=== PATIENT | male | born 1970 | race Caucasian/White ===

== ENCOUNTER 2023-11-04 08:23 | Outpatient (CLI) | payer OTHER, SELFPAY ==
--- OUTSIDE RECORDS SUMMARY | 2023-11-05 12:55 | XMS_ITS | Continuity of Care Document ---
Author Name [facility] Organization [facility] Care Team Providers Care Telephone Operator Name Role Phone [facility] Unavailable Unavailable Problems Combined list of problems from Department of Defense and Veterans [facility] facilities. It does not include entries that were removed or entered in error. Problem Status Onset Date Problem Type Date of Resolution Comments Source visit for: issue medical certificate Inactive Condition [facility] dislocation of finger closed interphalangeal joint Inactive Condition DoD closed fracture fingers ip joint with dislocation Inactive Condition DoD dislocation fingers closed right ring finger PIP Inactive Condition DoD Immunizations Combined list of available immunizations from the Department of Defense and Veterans [facility] facilities. Immunization Series Date Given Administered By Site Reaction Lot Number CVX Code Drug Television Maintenance Worker Status Comments Source COVID-19 (MODERNA), MRNA, LNP-S, PF, 100 MCG/0.5 ML DOSE 2 2020 207 complet ed MOD; [id number]; 1 [facility] COVID-19 (MODERNA), MRNA, LNP-S, PF, 100 MCG/0.5 ML DOSE 1 2020 207 complet ed MOD; [id number]; 1 [facility] Encounters Combined list of: 1) Encounters from Department of [facility] facilities going back up to thelast 18 months. 2) Encounters from the Department of [facility] facilities going back up to 280 months. Location Location Details Encounter Type Encounter Number Reason For Visit Attending Provider ADM Date DC Date Status Disposition Source [facility] [id number] 04/24 Released with Work/Duty Limitations [facility] [id number] 04/25 Released w/o Limitations [facility] [id number] 04/25 Released with Work/Duty Limitations [facility] [id number] 05/02 Released w/o Limitations [facility] Social History Combined list of available smoking, tobacco, and other social history from Department of Defense and Veterans Affairs facilities. Social History Type Response Date Comment Sourc e This section is an empty social history section. DoD
--- OUTSIDE RECORDS SUMMARY | 2023-11-05 12:55 | XMS_ITS | Clinical Summary ---
Author Name Unknown Organization [facility] Address [place], [place] [address] Care Team Providers Care Public Defender Name Role Phone Pcp, No Primary Care Provider Unavailabl e Allergies No known active allergies Medications No known medications Active Problems No known active problems Family History Medical History Relation Name Comments Arthritis Father Rheumatoid Arth ritis Relation Name Status Comments Father Social History Tobacco Use Types Packs/Day Years Used Date Smoking Tobacco: Never Smokeless Tobacco: Never Tobacco Cessation:Counseling Given: Yes Alcohol Use Standard Drinks/Week Comments Yes 0 (1 standard drink = 0.6 oz pur e alcohol) < 1 drink monthly Sex and Gender Information Value Date Recorded Sex Assigned at Not on file Gender Identity Not on file Sexual Orientation Not on file Obstetrics History Last Filed Vital Signs Vital Sign Reading Time Taken Comments Blood Pressure 124/85 08/28/2014 8:52 AM FRUIT DRYER Pulse 83 08/28/2014 8:52 AM FRUIT DRYER Temperature 36.9 ??C (98.4 ??F) 08/28/2014 8:52 AM CS T Respiratory Rate - - Oxygen Saturation 97% 08/28/2014 8:52 AM FRUIT DRYER Inhaled Oxygen Concentration - - Weight 142.1 kg (313 lb 3.2 oz) 08/28/2014 8:52 AM FRUIT DRYER Height 188 cm (6' 2.02) 08/28/2014 8:52 AM FRUIT DRYER Body Mass Index 40.2 08/28/2014 8:52 AM FRUIT DRYER Plan of Treatment Health Maintenance Due Date Last Done Comments Tdap 1979 Depression screening for age 12+ 1980 HIV for age 15-65 1983 BMI (ht and wt on same day) for age 18+ 1986 Hepatitis C screening for ag e 18-79 1986 Tetanus booster 1988 Colonoscopy through age 75 2013 Lipids for age 45-75 04/06/2018 04/06/2013 Zoster (shingles) series for age 50+ (1 of 2) 2018 COVID-19 vaccine series (2022-24 season) 2023 Influenza for age 50-64 03/26/2024 Pneumococcal series for age 6-64 Aged Out No longer eligible based on patient's age to complete this topic Procedures Procedure Name Priority Date/Time Associated Diagnosis Comments LIPID PANEL W REFLEX MEASURED LDL Routine 04/06/2013 9:44 AM CDT Routine general medical examination at a health care facility from Last 3 Months or Most Recently Relevant to Health Maintenance Results * (ABNORMAL) LIPID PANEL W REFLEX MEASURED LDL (04/06/2013 9:44 AM CDT) CHOLESTEROL,TOTAL 199 100 - 199 mg/dL 04/06/2013 10:31 AM T [facility] TRIGLYCERIDES 86 <150 mg/dL 04/06/2013 10:31 AM T [facility] HDL CHOLESTEROL 46 >40 mg/dL 3 10:31 AM T [facility] NON-HDL CHOLESTEROL 153(H) <145 mg/dl 04/06/2013 10:31 AM [facility] CHOL/HDL RATIO 4.33 <4.50 04/06/2013 10:31 AM T [facility] LDL CHOLESTEROL 136(H) <=130 mg/dL 04/06/2013 10:31 AM T [facility] PATIENT STATUS FASTING 04/06/2013 10:31 AM [facility] Blood specimen (specimen) BLOOD SPECIMEN / Unknown Venipuncture / Unknown 04/06/2013 9:44 AM CDT 04/06/2013 9:44 AM CDT Tiburcio Vasques MD CHEMISTRY [facility] [address] [place] [address] from Last 3 Months or Most Recently Relevant to Health Maintenance Care Teams Public Defender Relationship Specialty Start Date End Date Pcp, No . PCP - General 08/24/13
== END 2023-11-04 08:24 | disposition home or self-care (01) ==
LOC: NFLDREF 11-05 12:54
PROVIDERS: Visit Provider Family Medicine
DX: Z13.1 Encounter for screening for diabetes mellitus (principal); Z13.220 Encounter for screening for lipoid disorders; Z12.5 Encounter for screening for malignant neoplasm of prostate
CPT/HCPCS: 80061; 82947; G0103

== ENCOUNTER 2023-11-16 09:22 | Outpatient (CLI) | payer OTHER, SELFPAY ==
--- OUTSIDE RECORDS SUMMARY | 2023-11-16 09:25 | XMS_ITS | Continuity of Care Document ---
Author Name [facility] Organization [facility] Care Team Providers Care Product Design Engineer Name Role Phone [facility] Unavailable Unavailable Problems Combined list of problems from Department of Defense and Veterans [facility] facilities. It does not include entries that were removed or entered in error. Problem Status Onset Date Problem Type Date of Resolution Comments Source visit for: issue medical certificate Inactive Condition [facility] dislocation of finger closed interphalangeal joint Inactive Condition DoD closed fracture fingers ip joint with dislocation Inactive Condition DoD dislocation fingers closed right ring finger PIP Inactive Condition DoD Immunizations Combined list of available immunizations from the Department of Defense and Veterans [facility] facilities. Immunization Series Date Given Administered By Site Reaction Lot Number CVX Code Drug Beveler Status Comments Source COVID-19 (MODERNA), MRNA, LNP-S, PF, 100 MCG/0.5 ML DOSE 2 2020 207 complet ed MOD; [id number]; 1 [facility] COVID-19 (MODERNA), MRNA, LNP-S, PF, 100 MCG/0.5 ML DOSE 1 2020 207 complet ed MOD; [id number]; 1 [facility] Encounters Combined list of: 1) Encounters from Department of [facility] facilities going back up to thelast 18 months. 2) Encounters from the Department of [facility] facilities going back up to 280 months. Location Location Details Encounter Type Encounter Number Reason For Visit Attending Provider ADM Date DC Date Status Disposition Source [facility] OUTPAT[facility] [id number] 04/24 Released with Work/Duty Limitations [facility] [id number] 04/25 Released w/o Limitations [facility] [id number] 04/25 Released with Work/Duty Limitations [facility] [id number] 05/02 Released w/o Limitations [facility] Social History Combined list of available smoking, tobacco, and other social history from Department of Defense and Veterans Affairs facilities. Social History Type Response Date Comment Sourc e This section is an empty social history section. DoD
--- OUTSIDE RECORDS SUMMARY | 2023-11-16 09:25 | XMS_ITS | Clinical Summary ---
Author Name Unknown Organization [facility] Address [place], [place] [address] Care Team Providers Care Wellness Spa Manager Name Role Phone Pcp, No Primary Care [...] Comments Blood Pressure 124/85 08/28/2014 8:52 AM MEDICAL CLERK Pulse 83 08/28/2014 8:52 AM MEDICAL CLERK Temperature 36.9 ??C (98.4 ??F) 08/28/2014 8:52 AM CS T Respiratory Rate - - Oxygen Saturation 97% 08/28/2014 8:52 AM MEDICAL CLERK Inhaled Oxygen Concentration - - Weight 142.1 kg (313 lb 3.2 oz) 08/28/2014 8:52 AM MEDICAL CLERK Height 188 cm (6' 2.02) 08/28/2014 8:52 AM MEDICAL CLERK Body Mass Index 40.2 08/28/2014 8:52 AM MEDICAL CLERK Plan of Treatment Health Maintenance Due Date [...] Vasques MD CHEMISTRY [facility] [address] [place] [address] from Last 3 Months or Most Recently Relevant to Health Maintenance Care Teams Wellness Spa Manager Relationship Specialty Start Date End Date Pcp, No . PCP - General 08/24/13
== END 2023-11-16 09:23 | disposition home or self-care (01) ==
LOC: OP CLINIC 09:23
PROVIDERS: PCP Family Medicine; Visit Provider Surgery
DX: Z53.9 Procedure and treatment not carried out, unspecified reason (principal)

== ENCOUNTER 2023-11-25 09:29 | Outpatient (CLI) | payer OTHER, SELFPAY ==
--- OUTSIDE RECORDS SUMMARY | 2023-11-25 09:34 | XMS_ITS | Continuity of Care Document ---
Author Name [facility] Organization [facility] Care Team Providers Care Heel Seat Fitter Name Role Phone [facility] Unavailable Unavailable Problems Combined list of problems from Department of Defense and Veterans [facility] facilities. It does not include entries that were removed or entered in error. Problem Status Onset Date Problem Type Date of Resolution Comments Source visit for: issue medical certificate Inactive Condition [facility] dislocation of finger closed interphalangeal joint Inactive Condition DoD closed fracture fingers ip joint with dislocation Inactive Condition DoD dislocation fingers closed right ring finger PIP Inactive Condition DoD Immunizations Combined list of available immunizations from the Department of Defense and Veterans [facility] facilities. Immunization Series Date Given Administered By Site Reaction Lot Number CVX Code Drug Mine Car Mechanic Status Comments Source COVID-19 (MODERNA), MRNA, LNP-S, PF, 100 MCG/0.5 ML DOSE 2 2020 207 complet ed MOD; [id number]; 1 [facility] COVID-19 (MODERNA), MRNA, LNP-S, PF, 100 MCG/0.5 ML DOSE 1 2020 207 complet ed MOD; [id number]; 1 [facility] Encounters Combined list of: 1) Encounters from Department of [facility] facilities going back up to thelast 18 months. 2) Encounters from the Department of [facility] facilities going back up to 280 months. Location Location Details Encounter Type Encounter Number Reason For Visit Attending Provider ADM Date DC Date Status Disposition Source [facility] OUTPATIENT [id number] 04/24 Released with Work/Duty Limitations [facility] [id number] 04/25 Released w/o Limitations [facility] [id number] 04/25 Released with Work/Duty Limitations [facility] [id number] 05/02 Released w/o Limitations [facility] Social History Combined list of available smoking, tobacco, and other social history from Department of Defense and Veterans Affairs facilities. Social History Type Response Date Comment Sourc e This section is an empty social history section. DoD
--- OUTSIDE RECORDS SUMMARY | 2023-11-25 09:34 | XMS_ITS | Clinical Summary ---
Author Name Unknown Organization [facility] Address [place], [place] [address] Care Team Providers Care Service Unit Operator Name Role Phone Pcp, No Primary Care [...] Comments Blood Pressure 124/85 08/28/2014 8:52 AM CYBER POLICY AND STRATEGY PLANNER Pulse 83 08/28/2014 8:52 AM CYBER POLICY AND STRATEGY PLANNER Temperature 36.9 ??C (98.4 ??F) 08/28/2014 8:52 AM CS T Respiratory Rate - - Oxygen Saturation 97% 08/28/2014 8:52 AM CYBER POLICY AND STRATEGY PLANNER Inhaled Oxygen Concentration - - Weight 142.1 kg (313 lb 3.2 oz) 08/28/2014 8:52 AM CYBER POLICY AND STRATEGY PLANNER Height 188 cm (6' 2.02) 08/28/2014 8:52 AM CYBER POLICY AND STRATEGY PLANNER Body Mass Index 40.2 08/28/2014 8:52 AM CYBER POLICY AND STRATEGY PLANNER Plan of Treatment Health Maintenance Due Date [...] - 199 mg/dL 04/06/2013 10:31 AM T [facility] TRIGLYCERIDES 86 <150 mg/dL 04/06/2013 10:31 AM T [facility] HDL CHOLESTEROL 46 >40 mg/dL 3 10:31 AM T [facility] NON-HDL CHOLESTEROL 153(H) <145 mg/dl 04/06/2013 10:31 AM T [facility] CHOL/HDL RATIO 4.33 <4.50 04/06/2013 10:31 AM T [facility] LDL CHOLESTEROL 136(H) <=130 mg/dL 04/06/2013 10:31 AM T [facility] PATIENT STATUS FASTING 04/06/2013 10:31 AM T [facility] Blood specimen (specimen) BLOOD SPECIMEN / Unknown Venipuncture / Unknown 04/06/2013 9:44 AM CDT 04/06/2013 9:44 AM CDT Tiburcio Vasques MD CHEMISTRY [facility] [address] [place] [address] from Last 3 Months or Most Recently Relevant to Health Maintenance Care Teams Service Unit Operator Relationship Specialty Start Date End Date Pcp, No . PCP - General 08/24/13
--- NOTE | 2023-11-25 11:23 | W.ANESCHARGE ---
Anesthesia Charges Start Date/Time Anesthesia Start Date: 11/25/23 Anesthesia Start Time: 10:50 Stop Date/Time Anesthesia Stop Date: 11/25/23 Anesthesia Stop Time: 11:21
--- NOTE | 2023-11-25 11:41 | W.ANESCHARGE ---
Anesthesia Charges Start Date/Time Anesthesia Start Date: 11/25/23 Anesthesia Start Time: 10:50 Stop Date/Time Anesthesia Stop Date: 11/25/23 Anesthesia Stop Time: 11:21
== END 2023-11-25 09:30 | disposition home or self-care (01) ==
LOC: OP CLINIC 09:29
PROVIDERS: PCP Family Medicine; Visit Provider Surgery
DX: Z12.11 Encounter for screening for malignant neoplasm of colon (principal); K63.5 Polyp of colon
CPT/HCPCS: 00811; 45385; 88305; J2704

== ENCOUNTER 2024-07-24 00:13 | Emergency (ER) | payer OTHER, SELFPAY ==
--- OUTSIDE RECORDS SUMMARY | 2024-07-24 00:15 | XMS_ITS | Continuity of Care Document ---
Author Name [facility] Organization [facility] Care Team Providers Care Euclid Operator Name Role Phone [facility] Unavailable Unavailable Problems Combined list of problems from Department of Defense and Veterans [facility] facilities. It does not include entries that were removed or entered in error. Problem Status Onset Date Problem Type Date of Resolution Comments Source visit for: issue medical certificate Inactive Condition [facility] dislocation of finger closed interphalangeal joint Inactive Condition DoD closed fracture fingers ip joint with dislocation Inactive Condition DoD dislocation fingers closed right ring finger PIP Inactive Condition DoD Immunizations Combined list of available immunizations from the Department of Defense and Veterans [facility] facilities. Immunization Series Date Given Administered By Site Reaction Lot Number CVX Code Drug Technical Maintenance Specialist Status Comments Source COVID-19 (MODERNA), MRNA, LNP-S, PF, 100 MCG/0.5 ML DOSE 2 2020 207 complet ed MOD; [id number]; 1 [facility] COVID-19 (MODERNA), MRNA, LNP-S, PF, 100 MCG/0.5 ML DOSE 1 2020 207 complet ed MOD; [id number]; 1 [facility] Encounters Combined list of: 1) Encounters from Department of [facility] facilities going back up to thelast 18 months. 2) Encounters from the Department of [facility] facilities going back up to 280 months. Location Location Details Encounter Type Encounter Number Reason For Visit Attending Provider ADM Date DC Date Status Disposition Source [facility] OUTPATIENT [id number] 04/24 Released with Work/Duty Limitations [facility] OUT[facility] [id number] 04/25 Released w/o Limitations [facility] OUT[facility] [id number] 04/25 Released with Work/Duty Limitations [facility] [id number] 05/02 Released w/o Limitations [facility] Social History Combined list of available smoking, tobacco, and other social history from Department of Defense and Veterans Affairs facilities. Social History Type Response Date Comment Sourc e This section is an empty social history section. DoD
[2024-07-24 00:21] VITALS: BP 155/102; PULSE 63; RESP 16; TEMP 36; O2SAT 95; BMI 34.9
--- OUTSIDE RECORDS SUMMARY | 2024-07-24 00:56 | XMS_ITS | Continuity of Care Document ---
Author Name [facility] Organization [facility] Care Team Providers Care Hydraulic Jack Adjuster Name Role Phone [facility] Unavailable Unavailable Problems Combined list of problems from Department of Defense and Veterans [facility] facilities. It does not include entries that were removed or entered in error. Problem Status Onset Date Problem Type Date of Resolution Comments Source visit for: issue medical certificate Inactive Condition [facility] dislocation of finger closed interphalangeal joint Inactive Condition DoD closed fracture fingers ip joint with dislocation Inactive Condition DoD dislocation fingers closed right ring finger PIP Inactive Condition DoD Immunizations Combined list of available immunizations from the Department of Defense and Veterans [facility] facilities. Immunization Series Date Given Administered By Site Reaction Lot Number CVX Code Drug Candle Cutter Status Comments Source COVID-19 (MODERNA), MRNA, LNP-S, PF, 100 MCG/0.5 ML DOSE 2 2020 207 complet ed MOD; [id number]; 1 [facility] COVID-19 (MODERNA), MRNA, LNP-S, PF, 100 MCG/0.5 ML DOSE 1 2020 207 complet ed MOD; [id number]; 1 [facility] Encounters Combined list of: 1) Encounters from Department of [facility] facilities going back up to thelast 18 months. 2) Encounters from the Department of [facility] facilities going back up to 280 months. Location Location Details Encounter Type Encounter Number Reason For Visit Attending Provider ADM Date DC Date Status Disposition Source [facility] OUTPATIENT [id number] 04/24 Released with Work/Duty Limitations [facility] OUTPATIENT [id number] 04/25 Released w/o Limitations [facility] OUT[facility] [id number] 04/25 Released with Work/Duty Limitations [facility] [id number] 05/02 Released w/o Limitations [facility] Social History Combined list of available smoking, tobacco, and other social history from Department of Defense and Veterans Affairs facilities. Social History Type Response Date Comment Sourc e This section is an empty social history section. DoD
--- NOTE | 2024-07-24 01:07 | ED_ITS ---
HPI - Abdominal Pain General Date Seen: 07/24/24 Chief Complaint: Abdominal Pain Stated Complaint: abdominal pain Time Seen by Provider: 07/24/24 00:25 Source: patient Mode of arrival: ambulatory Limitations: no limitations History of Present Illness HPI narrative: Patient is a 54-year-old male presenting to the emergency department for abdominal pain. States for the past couple days he has been having some mild right-sided abdominal pain but over the past few hours he states this increase. Has gone from a 2/10 to a 6/10. Describes as a sharp sensation. States seems to be in his right abdomen radiating to his epigastric region. Denies having pain like this before. Has had no previous abdominal surgeries. Has had some nausea but no vomiting. Last bowel movement use yesterday and states it was normal. States typically goes a day or 2 between bowel movements if he is less active like he has been over the past month. Has not had any diarrhea. Denies dysuria. Denies flank pain. Also states he feels mildly short of breath. Feels like his breathing just as a rate at this time. Denies any associated chest pain though. No history of heart or lung disease. Not aware of any sick contacts. Denies fevers, chills, weakness, numbness, headache, lightheadedness, dizziness. No other concerns noted at this time. Related Data Home Medications ?Medication ?Instructions ?Recorded ?Confirmed No Known Home Medications 07/24/24 07/24/24 Previous Rx's ?Medication ?Instructions ?Recorded ondansetron 4 mg disintegrating 4 mg PO Q6H #20 tabs 07/24/24 tablet oxycodone 5 mg tablet 5 mg PO Q6H PRN pain #12 tabs 07/24/24 Allergies Allergy/AdvReac Type Severity Reaction Status Date / Time No Known Drug Allergies Allergy Verified 11/08/23 08:48 Review of Systems Status of ROS Reports: 10 or more systems reviewed and unremarkable except as noted in History and below PFSH PFS Social History What is your current living situation?: I presently have a place to live Problems where you live: declined to answer In the past 12 months, utilities in danger of being shut off: no In past 12 months, lack of transportation kept you from medical appts, meetings, work, or getting things needed for daily living: no In the past 12 mos, have been you worried that your food would run out before you had money to buy more?: never true In the past 12 mos, the food you bought just didn't last and you didn't have money to buy more?: never true Do you use any of these nicotine containing products: None How often do you have a drink containing alcohol: never AUDIT-C Alcohol total score: 0 Non-prescribed substance use: denies use How often does anyone, including family, friends and others, physically hurt you : never How often does anyone, including family, friends and others, insult or talk down to you: never How often does anyone, including family, friends and others, threaten you with harm: never How often does anyone, including family, friends and others, scream or curse at you: never Exam Narrative: Exam Narrative: Const: Well-nourished, Well-developed, in mild distress Eyes: PERRL, no conjunctival injection, and symmetrical lids HENT: Atraumatic external nose and ears. Moist mucous membranes. Neck: Symmetric, trachea midline, No thyromegaly. CVS: RRR, No murmurs or gallops. Peripheral pulses 2+ and equal in all extremities RESP: Unlabored respiratory effort. Clear to auscultation bilaterally. GI: Nontender/Nondistended, No rebound or guarding. Negative Russell sign MSK:Extremities w/o deformity, Normal Active ROM Skin: Warm, Dry. No rashes or lesions. Neuro: Normal Muscle tone, No focal neurological deficits. Psych: Awake, Alert, & Oriented x3. Appropriate mood and affect. Const: Vital Signs, click to edit/add: Vital Signs - 24 hr 07/24/24 00:21 07/24/24 03:23 07/24/24 08:20 Temperature 96.8 F L 97.9 F Pulse Rate [Pulse Oximeter] 63 60 58 L Respiratory Rate 16 16 16 Blood Pressure [Ri ght Upper Arm] 155/102 H 154/90 H 143/90 H Pulse Oximetry 95 97 97 Oxygen Delivery Me thod Room Air Room Air Room Air Course Vital Signs Vital signs: Initial Vital Signs Temperature 96.8 F L 07/24/24 00:21 Temperature Source Temporal Artery Scan 07/24/24 00:21 Pulse Rate 63 12/30/24 00:21 Respiratory Rate 16 07/24/24 00:21 Blood Pressure 155/102 H 07/24/24 00:21 Blood Pressure Mean 119 H 07/24/24 00:21 Blood Pressure Position Sitting 07/24/24 00:21 Pulse Oximetry 95 07/24/24 00:21 Oxygen Delivery Method Room Air 07/24/24 00:21 Vital Signs Temperature 96.8 F L 07/24/24 00:21 Pulse Rate 63 07/24/24 00:21 Respiratory Rate 16 07/24/24 00:21 Blood Pressure 155/102 H 07/24/24 00:21 Pulse Oximetry 95 07/24/24 00:21 Oxygen Delivery Method Room Air 07/24/24 00:21 Temperature 97.9 F 07/24/24 08:20 Pulse Rate 58 L 07/24/24 08:20 Respiratory Rate 16 07/24/24 08:20 Blood Pressure 143/90 H 07/24/24 08:20 Pulse Oximetry 97 07/24/24 08:20 Oxygen Delivery Method Room Air 07/24/24 08:20 Medications Administered Medications: Discontinued Medications Generic Name Dose Route Start Last Admin Trade Name Freq PRN Reason Stop Dose Admin Ketorolac Tromethamine 15 mg 07/24/24 00:50 07/24/24 01:25 Ketorolac 15 Mg/Ml Inj IVP 07/24/24 00:51 15 mg ONCE ONE Administration Morphine Sulfate 4 mg 07/24/24 03:53 07/24/24 03:55 Morphine 4 Mg/Ml Inj IVP 07/24/24 03:54 4 mg ONCE ONE Administration Morphine Sulfate 4 mg 07/24/24 05:44 07/24/24 05:50 Morphine 4 Mg/Ml Inj IVP 07/24/24 05:45 4 mg ONCE ONE Administration Ondansetron HCl 4 mg 07/24/24 00:50 07/24/24 01:25 Ondansetron 2 Mg/Ml Inj IVP 07/24/24 00:51 4 mg ONCE ONE Administration MDM - Abdominal Pain MDM Narrative Medical decision making narrative: Patient is a 54-year-old male presenting for abdominal pain. Abdominal pain could related to gallbladder liver disease, gastroenteritis, peptic ulcers, pancreatitis. Muscles likely to be an SBO as he has had no previous surgeries. Also unlikely to be appendicitis or diverticulitis considering location. Could also be an abnormal presentation for coronary artery disease. Shortness of breath may related to a viral syndrome, pneumonia, pneumothorax, PE. As he is otherwise stable seems rather unlikely to be aortic dissection or aortic aneurysm. Will order a CBC, D-dimer, urinalysis, CMP, COVID/flu/RSV, troponin, lipase, EKG. Toradol given for pain and Zofran given for nausea. Lab work returned showing no concerning abnormalities. He is feeling much better after the medications. EKG and troponin showed no concerning abnormalities. Also a repeat troponin within normal limits. D-dimer within normal limits. CT scan though returned showing cholelithiasis with CT findings suspicious for acute cholecystitis. Will do an ultrasound for better evaluation. Ultrasound will be performed when the ultrasound techs come in at 06:30. Patient is agreeable to this plan. Will be moved to a more comfortable room. Did require more morphine for pain. Ultrasound shows cholelithiasis but no clear signs of cholecystitis. His pain is under control right now in his LFTs are within normal limit. I do believe he is safe for discharge and outpatient follow-up with General surgery. He is agreeable to this plan. Will provide them oxycodone and Zofran to use as needed for symptom management. Lab Data Labs: Lab Results 07/24/24 07/24/24 07/24/24 Range/Units 00:50 01:10 01:40 WBC 10.96 (4.50-11.00) K/uL RBC 5.28 (4.30-5.90) m/uL Hgb 14.9 (13.5-17.5) gm/dL Hct 45.0 (37.0-53.0) % MCV 85 (80-100) fL MCH 28 (26-34) pg MCHC 33 (32-36) gm/dL RDW Coeff of Radha 12.9 (11.5-15.5) % Plt Count 179 (140-440) K/uL Neut % (Auto) 66.0 (42.0-72.0) % Lymph % (Auto) 21.9 (20-44) % Chase % (Auto) 8.2 (0.0-11.0) % Eos % (Auto) 2.9 (0.0-7.0) % Baso % (Auto) 0.8 (0.0-3.0) % Neut # (Auto) 7.23 H (1.7-7.0) K/uL Lymph # (Auto) 2.40 (0.90-2.90) K/uL Chase # (Auto) 0.90 (0.00-0.90) K/UL Eos # (Auto) 0.32 (0.00-0.50) K/uL Baso # (Auto) 0.09 (0.00-0.30) K/uL Abs Immat Gran (auto) 0.02 (0.00-0.30) K/uL Imm/Tot Granulo (auto) 0.2 % D-Dimer Quant (PE/DVT) 0.38 (0.00-0.50) ug/ml Sodium 137 (135-149) mmol/L Potassium 4.1 (3.6-5.1) mmol/L Chloride 104 (96-114) mmol/L Carbon Dioxide 23 (20-32) mmol/L Anion Gap 10 (7-15) mEq/L BUN 20 (7-30) mg/dL Creatinine 0.9 (0.5-1.5) mg/dL Estimated Creat Clear 106.56 Estimated GFR 100 ml/min Glucose 139 H (60-115) mg/dL Calcium 9.0 (8.4-10.6) mg/dL Total Bilirubin 0.4 (0.1-1.5) mg/dL AST 23 (12-35) U/L ALT 28 (4-50) U/L Alkaline Phosphatase 70 (40-150) U/L Total Protein 7.2 (6.0-8.3) g/dL Albumin 4.4 (3.3-5.0) g/dL Lipase 51 (23-300) U/L Urine Color Yellow (Yellow) Urine Appearance Clear (Clear) Urine pH 6.5 (5.0-8.5) Ur Specific Vansant 1.025 (1.000-1.030) Urine Protein Negative (Negative) Urine Glucose (UA) Negative (Negative) Urine Ketones Negative (Negative) Urine Blood Trace-intact A (Negative) Urine Nitrite Negative (Negative) Urine Bilirubin Negative (Negative) Urine Urobilinogen 0.2 (0.2-1.0) Ur Leukocyte Esterase Negative (Negative) Urine RBC 5-10 A (0-2) Urine WBC 0-2 (0-5) Ur Squamous Epith Cells Few (None-Few) Urine Bacteria Few A (None) SARS-CoV-2 (PCR) Negative SARS-CoV-2 (Negative) Influenza Type A (PCR) Negative PCR FLU A (Negative) Influenza Type B (PCR) Negative PCR FLU B (Negative) RSV (PCR) Negative PCR RSV (Negative) Lab Acknowledgement Test Added POC Troponin I 0.00 L (0.01-0.04) ng/ml 07/24/24 Range/Units 02:50 WBC (4.50-11.00) K/uL RBC (4.30-5.90) m/uL Hgb (13.5-17.5) gm/dL Hct (37.0-53.0) % MCV (80-100) fL MCH (26-34) pg MCHC (32-36) gm/dL RDW Coeff of Radha (11.5-15.5) % Plt Count (140-440) K/uL Neut % (Auto) (42.0-72.0) % Lymph % (Auto) (20-44) % Chase % (Auto) (0.0-11.0) % Eos % (Auto) (0.0-7.0) % Baso % (Auto) (0.0-3.0) % Neut # (Auto) (1.7-7.0) K/uL Lymph # (Auto) (0.90-2.90) K/uL Chase # (Auto) (0.00-0.90) K/UL Eos # (Auto) (0.00-0.50) K/uL Baso # (Auto) (0.00-0.30) K/uL Abs Immat Gran (auto) (0.00-0.30) K/uL Imm/Tot Granulo (auto) % D-Dimer Quant (PE/DVT) (0.00-0.50) ug/ml Sodium (135-149) mmol/L Potassium (3.6-5.1) mmol/L Chloride (96-114) mmol/L Carbon Dioxide (20-32) mmol/L Anion Gap (7-15) mEq/L BUN (7-30) mg/dL Creatinine (0.5-1.5) mg/dL Estimated Creat Clear Estimated GFR ml/min Glucose (60-115) mg/dL Calcium (8.4-10.6) mg/dL Total Bilirubin (0.1-1.5) mg/dL AST (12-35) U/L ALT (4-50) U/L Alkaline Phosphatase (40-150) U/L Total Protein (6.0-8.3) g/dL Albumin (3.3-5.0) g/dL Lipase (23-300) U/L Urine Color (Yellow) Urine Appearance (Clear) Urine pH (5.0-8.5) Ur Specific Vansant (1.000-1.030) Urine Protein (Negative) Urine Glucose (UA) (Negative) Urine Ketones (Negative) Urine Blood (Negative) Urine Nitrite (Negative) Urine Bilirubin (Negative) Urine Urobilinogen (0.2-1.0) Ur Leukocyte Esterase (Negative) Urine RBC (0-2) Urine WBC (0-5) Ur Squamous Epith Cells (None-Few) Urine Bacteria (None) SARS-CoV-2 (PCR) (Negative) Influenza Type A (PCR) (Negative) Influenza Type B (PCR) (Negative) RSV (PCR) (Negative) Lab Acknowledgement POC Troponin I 0.00 L (0.01-0.04) ng/ml Imaging Data CT scan abdomen pelvis: Attestation: I have reviewed the pertinent imaging results. Radiologist's impression: Cholelithiasis with CT findings suspicious for acute cholecystitis, inclusive of prominent gallbladder distension and mild pericholecystic edema. Please note that all CT scans at this facility use dose modulation, iterative reconstruction, and/or weight-based dosing when appropriate to reduce radiation dose to as low as reasonably achievable. Dictated by Duncan Francis MD @ 07/24/2024 3:21:40 AM US - abdomen: Radiologist's impression: 1. Cholelithiasis with gallbladder distention. No additional sonographic evidence of acute cholecystitis. 2. Top-normal size of the common bile duct, which is largely obscured by bowel gas. Dictated by Lelia Saul MD @ 07/24/2024 8:36:58 AM ECG Data Attestation: I personally reviewed and interpreted this ECG as follows: Prior ECG tracings: not available for review Interpretation: Sinus bradycardia with a rate of 56 beats per minute, normal intervals, normal axis, no ST or T-wave abnormalities. Discharge Plan Discharge Clinical Impression: Cholelithiasis Qualifiers: Cholelithiasis location: gallbladder Cholecystitis presence: without cholecystitis Biliary obstruction: without biliary obstruction Qualified Code(s): K80.20 - Calculus of gallbladder without cholecystitis without obstruction Condition: Improved Instructions: Gallstones (ED) Additional Instructions: Use the oxycodone as needed for pain. Use Zofran as needed for nausea. Call [facility] at [phone] to schedule follow-up with general surgery. Return to emergency department for new or worsening symptoms. Prescriptions: New ondansetron 4 mg tablet,disintegrating 4 mg PO Q6H Qty: 20 0RF oxycodone 5 mg tablet 5 mg PO Q6H PRN (Reason: pain) Qty: 12 0RF No Action No Known Home Medications Follow Up/Referrals: Tiburcio Burciaga MD [Primary Care Provider] -
[2024-07-24] MEDS: ONDANSETRON 2 MG/ML inj 4 MG IVP (01:25)
[2024-07-24] MEDS: KETOROLAC 15 MG/ML inj IVP (01:25)
[2024-07-24 01:52] LABS: Appearance Urine Clear (Clear); Bilirubin Urine Negative (Negative); Blood Urine Trace-intact (Negative); Color Urine Yellow (Yellow); Glucose Urine Negative (Negative); Ketones Urine Negative (Negative); Leukocyte Esterase Urine Negative (Negative); Nitrite Urine Negative (Negative); Protein Urine Negative (Negative); Specific Gravity Urine 1.025 (1.000-1.030); Urobilinogen Urine 0.2 (0.2-1.0); pH Urine 6.5 (5.0-8.5)
[2024-07-24 01:53] LABS: Basophils Absolute Auto 0.09 K/uL (0.00-0.30); Basophils Percent Auto 0.8 % (0.0-3.0); Eosinophils Absolute Auto 0.32 K/uL (0.00-0.50); Eosinophils Percent Auto 2.9 % (0.0-7.0); Hemoglobin* 14.9 gm/dL (13.5-17.5); Immature Granulocytes Abs Auto 0.02 K/uL (0.00-0.30); Immature Granulocytes Pct Auto 0.2 %; Lymphocytes Percent Auto 21.9 % (20-44); Mean Corpuscular HGB Conc 33 gm/dL (32-36); Mean Corpuscular Hemoglobin 28 pg (26-34); Mean Corpuscular Volume 85 fL (80-100); Monocytes Percent Auto 8.2 % (0.0-11.0); Neutrophils Absolute Auto 7.23 K/uL (1.7-7.0); Platelet Count* 179 K/uL (140-440); RDW Coefficient of Variation % 12.9 % (11.5-15.5); Red Blood Count 5.28 m/uL (4.30-5.90); White Blood Count* 10.96 K/uL (4.50-11.00)
[2024-07-24 02:05] LABS: Albumin* 4.4 g/dL (3.3-5.0); Slide Review Reflex No
[2024-07-24 02:06] LABS: Bacteria Urine Few; Chloride* 104 mmol/L (96-114); Potassium* 4.1 mmol/L (3.6-5.1); Sodium* 137 mmol/L (135-149); Squamous Epithelial Cell Urine Few (None-Few); WBC Urine 0-2 (0-5)
[2024-07-24 02:08] LABS: Anion Gap 10 mEq/L (7-15); Aspartate Amino Transferase* 23 U/L (12-35); Bilirubin Total* 0.4 mg/dL (0.1-1.5); Carbon Dioxide* 23 mmol/L (20-32); Creatinine* 0.9 mg/dL (0.5-1.5); D Dimer Quantitative* 0.38 ug/ml (0.00-0.50); Est. Creatinine Clearance* 106.56; Estimated Glomerular Filt Rate 100 ml/min; Total Protein* 7.2 g/dL (6.0-8.3)
[2024-07-24 02:09] LABS: Alanine Aminotransferase* 28 U/L (4-50); Alkaline Phosphatase* 70 U/L (40-150); Blood Urea Nitrogen* 20 mg/dL (7-30); Glucose* 139 mg/dL (60-115); Lipase* 51 U/L (23-300)
[2024-07-24 02:25] LABS: PCR FLU A Negative PCR FLU A (Negative); PCR FLU B Negative PCR FLU B (Negative); PCR RSV Negative PCR RSV (Negative); SARS PCR* Negative SARS-CoV-2 (Negative)
--- NOTE | 2024-07-24 02:34 | CRLHL7_ITS ---
For Patients: As a result of the Century Cures Act, medical imaging exams and procedure reports are released immediately into your electronic medical record. You may view this report before your referring provider. If you have questions, please contact your health care provider. INDICATION: Right-sided/epigastric abdominal pain. TECHNIQUE: CT abdomen and pelvis acquired with 133 cc Omnipaque 370 IV contrast. COMPARISON: None. FINDINGS: Lower chest: Unremarkable. Liver: Unremarkable. Gallbladder and bile ducts: Prominently distended gallbladder measuring up to 17 cm with multiple gallstones and mild pericholecystic edema. No biliary ductal dilatation. Pancreas: Unremarkable. Spleen: Unremarkable. Adrenal glands: Unremarkable. Kidneys: Left renal cysts. No suspicious renal lesion. No hydronephrosis or hydroureter. No urinary calculi. GI tract: No bowel obstruction. No suspicious bowel wall thickening. Normal appendix. Vasculature: Abdominal aorta is normal in caliber. Mesenteric arteries are patent. Lymph nodes: No suspicious lymphadenopathy. Peritoneum/Abdominal Wall: No ascites or pneumoperitoneum. No acute abdominal wall abnormality. Pelvis: Normal bladder. Unremarkable prostate and seminal vesicles. Bones: No acute abnormality. IMPRESSION: Cholelithiasis with CT findings suspicious for acute cholecystitis, inclusive of prominent gallbladder distension and mild pericholecystic edema. Please note that all CT scans at this facility use dose modulation, iterative reconstruction, and/or weight-based dosing when appropriate to reduce radiation dose to as low as reasonably achievable. Dictated by Duncan Francis MD @ 07/24/2024 3:21:40 AM (Electronically Signed)
--- NOTE | 2024-07-24 02:34 | CRLHL7_ITS ---
For Patients: As a result of the Cures Act, medical imaging exams and procedure reports are released immediately into your electronic medical record. You may view this report before your referring provider. If you have questions, please contact your health care provider. Indication: Shortness of breath Technique: Two views of the chest Comparison: None Findings/Impression: No acute cardiopulmonary process detected. Dictated by Donovan Jaimes MD @ 07/24/2024 3:10:37 AM (Electronically Signed)
[2024-07-24 03:23] VITALS: BP 154/90; PULSE 60; RESP 16; O2SAT 97
[2024-07-24] MEDS: MORPHINE 4 MG/ML INJ IVP ×2 (03:55→05:50)
--- NOTE | 2024-07-24 06:30 | CRLHL7_ITS ---
For Patients: As a result of the Century Cures Act, medical imaging exams and procedure reports are released immediately into your electronic medical record. You may view this report before your referring provider. If you have questions, please contact your health care provider. INDICATION: Abdominal pain. Possible cholecystitis. TECHNIQUE: Ultrasound abdomen limited. Sonographic images of the right upper quadrant were obtained using goddard-scale and color Doppler images. Sixty images. COMPARISON: Same day CT of the abdomen and pelvis. FINDINGS: Liver: Liver is enlarged measuring 19 cm in length. No suspicious masses. No intrahepatic biliary dilatation. Gallbladder: There is gallbladder distention with intraluminal sludge and stones. A 3.9 cm shadowing calculus is seen within the gallbladder fundus. Additional stone seen within the gallbladder neck is better evaluated on prior CT. The gallbladder wall is normal in thickness. No pericholecystic edema is present. Sonographic Russell`s sign is negative Common bile duct: 6 mm. The majority of the common bile duct is obscured by bowel gas. Pancreas: Obscured by bowel gas. Right kidney: Normal in size measuring 11.7 cm in length. Normal echotexture and cortex. No suspicious masses, stones, or hydronephrosis. Vasculature: Proximal vasculature obscured by bowel gas. Mid and distal abdominal aorta are normal in caliber. IMPRESSION: 1. Cholelithiasis with gallbladder distention. No additional sonographic evidence of acute cholecystitis. 2. Top-normal size of the common bile duct, which is largely obscured by bowel gas. Dictated by Lelia Saul MD @ 07/24/2024 8:36:58 AM (Electronically Signed)
[2024-07-24 08:20] VITALS: BP 143/90; PULSE 58; RESP 16; TEMP 36.6; O2SAT 97
== END 2024-07-24 09:08 | disposition home or self-care (01) ==
PROVIDERS: Emergency Provider Student in an Organized Health Care Education/Training Program; PCP Family Medicine
DX: K80.20 Calculus of gallbladder without cholecystitis without obstruction (principal)
CPT/HCPCS: 36415; 71046; 74177; 76705; 80053; 81001; 83690; 84484; 85025; 85379; 87086; 87631; 93005; 96374; 99284; 99285; J1885; J2270; J2405; Q9967

== ENCOUNTER 2024-07-27 11:40 | Day surgery (SDC) | payer OTHER, SELFPAY ==
[2024-07-27] VITALS (17 sets, daily range): BP systolic 133–179; BP diastolic 79–109; PULSE 58–84; RESP 12–20; TEMP 35.9–36.4; O2SAT 94–99; BMI 34.7
--- OUTSIDE RECORDS SUMMARY | 2024-07-27 11:42 | XMS_ITS | Clinical Summary ---
Author Organization [facility] Address [place], [place] [address] Care Team Providers Care Clinical Nursing Professor Name Role Phone Pcp, No Primary Care [...] Recorded Sex Assigned at Not on file Legal Sex Male 5:46 AM LEGAL WORD PROCESSOR Gender Identity Not on file Sexual Orientation Not on file Occupation Industry Job Start Date Job End Date [employer] Not on file Not on file Not on file Obstetrics History Last Filed Vital Signs Vital Sign Reading Time Taken Comments Blood Pressure 124/85 08/28/2014 8:52 AM LEGAL WORD PROCESSOR Pulse 83 08/28/2014 8:52 AM LEGAL WORD PROCESSOR Temperature 36.9 C (98.4 F) 08/28/2014 8:52 AM LEGAL WORD PROCESSOR Respiratory Rate - - Oxygen Saturation 97% 08/28/2014 8:52 AM LEGAL WORD PROCESSOR Inhaled Oxygen Concentration - - Weight 142.1 kg (313 lb 3.2 oz) 08/28/2014 8:52 AM LEGAL WORD PROCESSOR Height 188 cm (6' 2.02) 08/28/2014 8:52 AM LEGAL WORD PROCESSOR Body Mass Index 40.2 08/28/2014 8:52 AM LEGAL WORD PROCESSOR Plan of Treatment Health Maintenance Due Date Last Done Comments Tdap 1979 Depression screening for age 12+ 1980 HIV for age 15-65 1983 BMI (ht and wt on same day) for age 18+ 1986 Hepatitis C screening for age 18-79 1986 Tetanus booster 1988 Colonoscopy through age 75 2013 Lipids for age 45-75 04/06/2018 04/06/2013 Pneumococcal series for age 50+ (1 of 1 - PCV) 018 Zoster (shingles) series for age 50+ (1 of 2) 07/06/20 18 COVID-19 vaccine series ( - 2023- season) 4 Influenza for age 50-64 03/26/2024 Procedures Procedure Name Priority Date/Time Associated Diagnosis Comments LIPID PANEL W REFLEX MEASURED LDL Routine 04/06/2013 9:44 AM CDT Routine general medical examination at a health care facility from Last 3 Months or Most Recently Relevant to Health Maintenance Results * (ABNORMAL) LIPID PANEL W REFLEX MEASURED LDL (04/06/2013 9:44 AM CDT) CHOLESTEROL,TOTAL 199 100 - 199 mg/dL 04/06/2013 10:31 AM [facility] TRIGLYCERIDES 86 <150 mg/dL 04/06/2013 10:31 AM [facility] HDL CHOLESTEROL 46 >40 mg/dL 3 10:31 AM [facility] NON-HDL CHOLESTEROL 153(H) <145 mg/dl 04/06/2013 10:31 AM [facility] CHOL/HDL RATIO 4.33 <4.50 04/06/2013 10:31 AM [facility] LDL CHOLESTEROL 136(H) <=130 mg/dL 04/06/2013 10:31 AM [facility] PATIENT STATUS FASTING 04/06/2013 10:31 AM [facility] Blood specimen (specimen) BLOOD SPECIMEN / Unknown Venipuncture / Unknown 04/06/2013 9:44 AM CDT 04/06/2013 9:44 AM CDT us Tiburcio Vasques MD CHEMISTRY Final Re sult [facility] [address] [place] [address] from Last 3 Months or Most Recently Relevant to Health Maintenance Care Teams Clinical Nursing Professor Relationship Specialty Start Date End Date Pcp, No . PCP - General 08/24/13
--- OUTSIDE RECORDS SUMMARY | 2024-07-27 11:42 | XMS_ITS | Continuity of Care Document ---
Author Name [facility] Organization [facility] Care Team Providers Care [employer] Supervisor Name Role Phone [facility] Unavailable Unavailable Problems Combined list of problems from Department of Defense and [facility] facilities. It does not include entries that were removed or entered in error. Problem Status Onset Date Problem Type Date of Resolution Comments Source visit for: issue medical certificate Inactive Condition [facility] dislocation of finger closed interphalangeal joint Inactive Condition [facility] closed fracture fingers ip joint with dislocation Inactive Condition [facility] dislocation fingers closed right ring finger PIP Inactive Condition [facility] Immunizations Combined list of available immunizations from the Department of Defense and [facility] facilities. Immunization Series Date Given Administered By Site Reaction Lot Number CVX Code Drug Business Writer Status Comments Source COVID-19 (MODERNA), MRNA, LNP-S, PF, 100 MCG/0.5 ML DOSE 2 2020 207 complet ed MOD; [id number]; 1 [facility] COVID-19 (MODERNA), MRNA, LNP-S, PF, 100 MCG/0.5 ML DOSE 1 2020 207 complet ed MOD; [id number]; 1 [facility] Encounters Combined list of: 1) Encounters from Department of [facility] facilities going back up to thelast 18 months. 2) Encounters from the Department of [facility] facilities going back up to 280 months. Location Location Details Encounter Type Encounter Number Reason For Visit Attending Provider ADM Date DC Date Status Disposition Source Theater Facility OUTPATIENT [id number] 04/24 Released with Work/Duty Limitations [facility] OUTPATIENT [id number] 04/25 Released w/o Limitations [facility] OUTPATIENT [id number] 04/25 Released with Work/Duty Limitations [facility] OUTPATIENT [id number] 05/02 Released w/o Limitations Theater Facilit y Social History Combined list of available smoking, tobacco, and other social history from Department of Defense and [facility] facilities. Social History Type Response Date Comment Sourc e This section is an empty social history section. DoD
--- NOTE | 2024-07-27 12:11 | CRLHL7_ITS ---
For Patients: As a result of the Century Cures Act, medical imaging exams and procedure reports are released immediately into your electronic medical record. You may view this report before your referring provider. If you have questions, please contact your health care provider. INDICATION: GALLSTONES, EVAL FOR CHOLECYSTITIS COMPARISON: 07/24/2024 gallbladder ultrasound TECHNIQUE: Sonographic evaluation of the gallbladder was performed utilizing goddard-scale and color Doppler imaging techniques. FINDINGS: Common bile duct measures 4 millimeters in diameter. Positive sonographic Russell`s sign. Cholelithiasis including a large stone at the gallbladder neck. Distended gallbladder. Gallbladder wall measures 3 millimeters in thickness which is within normal limits. No pericholecystic fluid. IMPRESSION: There is cholelithiasis, distention of the gallbladder, and positive sonographic Russell`s sign. These findings could indicate acute cholecystitis in the appropriate clinical setting, although there is no pericholecystic fluid or gallbladder wall thickening. If further imaging evaluation would be of clinical utility, consider a HIDA scan. Dictated by Tyrel Walters MD @ 07/27/2024 12:58:13 PM (Electronically Signed)
--- NOTE | 2024-07-27 12:22 | ED.GENADULT ---
HPI - General Adult General Date Seen: 07/27/24 Chief complaint: Abdominal Pain Stated complaint: gallbladder pain Time Seen by Provider: 07/27/24 11:47 History of Present Illness HPI narrative: Patient is a 54-year-old male who was seen here on July 24 with right upper quadrant pain and diagnosed with biliary colic. His pain was controlled at that time workup was negative for findings suggesting cholecystitis and he was discharged home. He tells me he has an appointment next week with General surgery for consultation, but he comes in today because he says that he just can not function with the way things are. He says he has pain to some degree all the time although right now it is mild. It gets worse with eating any also notices that if he sits quietly for a while the pain goes away and then when he stands up that comes back. He has had a little bit of nausea but no vomiting. He says he did not eat much the 1st couple days after he was seen in the ER, has been keeping his diet very bland and eating minimally because the pain gets worse 15-20 minutes after he puts anything in his stomach. He has not had fevers. Denies urinary symptoms, respiratory symptoms, fevers. 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 He was prescribed oxycodone which he has taken a couple of times but has been trying to avoid it. No other abdominal surgeries. Last ate at 8:30 a.m., had water just before coming in. 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 He does not smoke. Does not drink alcohol. What is your current living situation?: I presently have a place to live Problems where you live: declined to answer In the past 12 months, utilities in danger of being shut off: no In past 12 months, lack of transportation kept you from medical appts, meetings, work, or getting things needed for daily living: no In the past 12 mos, have been you worried that your food would run out before you had money to buy more?: never true In the past 12 mos, the food you bought just didn't last and you didn't have money to buy more?: never true Smoking Status: Never smoker Do you use any of these nicotine containing products: None How often do you have a drink containing alcohol: never AUDIT-C Alcohol total score: 0 Non-prescribed substance use: denies use How often does anyone, including family, friends and others, physically hurt you: never How often does anyone, including family, friends and others, insult or talk down to you: never How often does anyone, including family, friends and others, threaten you with harm: never How often does anyone, including family, friends and others, scream or curse at you: never Exam Narrative: Exam Narrative: Vital signs reviewed In general, alert, nontoxic in age male. Looks comfortable at this time. Head: Normocephalic, atraumatic. Eyes: Sclera clear. Pupils equal and reactive. No scleral icterus. ENT: Mucous membranes moist. Neck: Supple without adenopathy. Heart: Regular rate and rhythm without murmur. Lungs: Clear. No increased work of breathing, crackles or wheezes. No CVA tenderness. No apparent chest wall tenderness. Abdomen: Soft and nondistended. He has mild right upper quadrant tenderness without rebound guarding or rigidity. Negative Russell's. Extremities: Well perfused, pulses intact. No significant edema. Neurologic: Alert, conversant. Speech fluent, face symmetric. Moves all extremities equally. Skin: Warm, dry well perfused. Affect: Normal. Const: Vital Signs, click to edit/add: Vital Signs - 24 hr 07/27/24 11:50 07/27/24 13:39 07/27/24 15:25 Temperature 97.1 F L 97.0 F L 97.2 F L Pulse Rate [Left P ulse Oximeter] 84 62 58 L Respiratory Rate 18 18 18 Blood Pressure [Ri t Upper Arm] 175/81 H 133/88 142/83 H Pulse Oximetry 98 94 97 Oxygen Delivery Me thod Room Air Room Air Room Air Course Course ED Course: Patient presents with known gallstones, biliary colic, consider cholecystitis at this time. The worsening of pain with movement is little atypical but otherwise symptoms sound consistent with gallbladder related pain. Other diagnostic considerations would include pancreatitis, he does not have any pulmonary symptoms to suggest pneumonia, he had a negative D-dimer on the , does not have any urinary symptoms to suggest a diagnosis of kidney stone, urinary tract infection, pyelonephritis. Will repeat labs and ultrasound. He declines need for anything for pain or nausea at this time. Preliminary read of the ultrasound is hydropic gallbladder without thickened wall and a 2.5 cm stone in the neck. Prior records were reviewed including prior CT scan of the abdomen and right upper quadrant ultrasound done on the . At that time, he was noted have a stone in the neck but gallbladder wall was not thickened. Common bile duct at that time was upper limits of normal at 6 mm, measuring at 4 mm today. Labs are pending. Case discussed with General surgery. Will await labs to confirm no laboratory evidence of common duct stone, then plan would be for cholecystectomy. EKG done preoperatively shows a sinus bradycardia, ventricular rate of 55. No acute ST segment changes, normal corrected QT and WA intervals. Unremarkable T-waves. Labs are reassuring, essentially all remained normal. LFTs specifically show no abnormalities. Dr. Monk evaluated the patient as well, plan will be to go to the OR when he is ready from an NPO status, around 4:30 p.m.. He has remained comfortable without complaints, hemodynamically stable. Awaiting transfer to or. Vital Signs Vital signs: Initial Vital Signs Temperature 97.1 F L 07/27/24 11:50 Temperature Source Temporal Artery Scan 07/27/24 11:50 Pulse Rate 84 07/27/24 11:50 Respiratory Rate 18 07/27/24 11:50 Blood Pressure 175/81 H 07/27/24 11:50 Blood Pressure Mean 112 H 07/27/24 11:50 Blood Pressure Position Sitting 07/27/24 11:50 Pulse Oximetry 98 07/27/24 11:50 Oxygen Delivery Method Room Air 07/27/24 11:50 Vital Signs Temperature 97.1 F L 07/27/24 11:50 Pulse Rate 84 07/27/24 11:50 Respiratory Rate 18 07/27/24 11:50 Blood Pressure 175/81 H 07/27/24 11:50 Pulse Oximetry 98 07/27/24 11:50 Oxygen Delivery Method Room Air 07/27/24 11:50 Temperature 97.2 F L 07/27/24 15:25 Pulse Rate 58 L 07/27/24 15:25 Respiratory Rate 18 07/27/24 15:25 Blood Pressure 142/83 H 07/27/24 15:25 Pulse Oximetry 97 07/27/24 15:25 Oxygen Delivery Method Room Air 07/27/24 15:25 Medications Administered Medications: Generic Name Dose Route Start Last Admin Trade Name Freq PRN Reason Stop Dose Admin Lactated Ringer's 500 mls @ 125 mls/hr 07/27/24 17:01 07/27/24 16:27 Lactated Ringers 500 Ml IV 125 mls/hr .Q4H HEIDI Administration Discontinued Medications Generic Name Dose Route Start Last Admin Trade Name Freq PRN Reason Stop Dose Admin Cefazolin Sodium 2 gm/ Sodium 100 mls @ 200 mls/hr 07/27/24 16:59 07/27/24 16:40 Chloride IVPB 07/27/24 17:00 200 mls/hr ONCE ONE Administration Medical Decision Making Lab Data Labs: Lab Results 07/27/24 Range/Units 13:00 WBC 7.92 (4.50-11.00) K/uL RBC 5.00 (4.30-5.90) m/uL Hgb 14.3 (13.5-17.5) gm/dL Hct 43.0 (37.0-53.0) % MCV 86 (80-100) fL MCH 29 (26-34) pg MCHC 33 (32-36) gm/dL RDW Coeff of Radha 12.7 (11.5-15.5) % Plt Count 162 (140-440) K/uL Neut % (Auto) 58.6 (42.0-72.0) % Lymph % (Auto) 26.4 (20-44) % Newton % (Auto) 11.0 (0.0-11.0) % Eos % (Auto) 3.3 (0.0-7.0) % Baso % (Auto) 0.6 (0.0-3.0) % Neut # (Auto) 4.64 (1.7-7.0) K/uL Lymph # (Auto) 2.09 (0.90-2.90) K/uL Newton # (Auto) 0.90 (0.00-0.90) K/UL Eos # (Auto) 0.26 (0.00-0.50) K/uL Baso # (Auto) 0.05 (0.00-0.30) K/uL Abs Immat Gran (auto) 0.01 (0.00-0.30) K/uL Imm/Tot Granulo (auto) 0.1 % Total Bilirubin 0.5 (0.1-1.5) mg/dL Direct Bilirubin 0.3 (0.0-0.5) mg/dL AST 23 (12-35) U/L ALT 36 (4-50) U/L Alkaline Phosphatase 52 (40-150) U/L C-Reactive Protein 1.1 H (0.5-1.0) mg/dL Total Protein 7.1 (6.0-8.3) g/dL Albumin 4.1 (3.3-5.0) g/dL Lipase 62 (23-300) U/L Imaging Data US - abdomen: Attestation: I have reviewed the pertinent imaging results. Radiologist's impression: Patient: William Avila MR#: [id number] : 1970 Acct:[id number] Loc: ED Service Date: 07/27/[address]: Ordering Physician: Eve Platt M.D. Date of Service: 07/27/24 Procedure(s): US gallbladder Accession Number(s): [id number] cc: Tiburcio Burciaga M.D.; Eve Platt M.D.~ For Patients: As a result of the 21st Century Cures Act, medical imaging exams and procedure reports are released immediately into your electronic medical record. You may view this report before your referring provider. If you have questions, please contact your health care provider. INDICATION: GALLSTONES, EVAL FOR CHOLECYSTITIS COMPARISON: 07/24/2024 gallbladder ultrasound TECHNIQUE: Sonographic evaluation of the gallbladder was performed utilizing goddard-scale and color Doppler imaging techniques. FINDINGS: Common bile duct measures 4 millimeters in diameter. Positive sonographic Russell`s sign. Cholelithiasis including a large stone at the gallbladder neck. Distended gallbladder. Gallbladder wall measures 3 millimeters in thickness which is within normal limits. No pericholecystic fluid. IMPRESSION: There is cholelithiasis, distention of the gallbladder, and positive sonographic Russell`s sign. These findings could indicate acute cholecystitis in the appropriate clinical setting, although there is no pericholecystic fluid or gallbladder wall thickening. If further imaging evaluation would be of clinical utility, consider a HIDA scan. Dictated by Tyrel Walters MD @ 07/27/2024 12:58:13 PM (Electronically Signed) Discharge Plan Discharge Clinical Impression: Cholecystitis Patient Disposition: XFER to OR
--- OUTSIDE RECORDS SUMMARY | 2024-07-27 12:35 | XMS_ITS | Continuity of Care Document ---
Author Name [facility] Organization [facility] Care Team Providers Care Doffer Name Role Phone [facility] Unavailable Unavailable Problems Combined list of problems from Department of Defense and [facility] facilities. It does not include entries that were removed or entered in error. Problem Status Onset Date Problem Type Date of Resolution Comments Source visit for: issue medical certificate Inactive Condition [facility] dislocation of finger closed interphalangeal joint Inactive Condition [facility] closed fracture fingers ip joint with dislocation Inactive Condition Do[facility] dislocation fingers closed right ring finger PIP Inactive Condition [facility] Immunizations Combined list of available immunizations from the Department of Defense and [facility] facilities. Immunization Series Date Given Administered By Site Reaction Lot Number CVX Code Drug Assistant Store Director Status Comments Source COVID-19 (MODERNA), MRNA, LNP-S, PF, 100 MCG/0.5 ML DOSE 2 2020 207 complet ed MOD; [id number]; 1 [facility] COVID-19 (MODERNA), MRNA, LNP-S, PF, 100 MCG/0.5 ML DOSE 1 2020 207 complet ed MOD; [id number]; 1 [facility] Encounters Combined list of: 1) Encounters from Department of [facility] facilities going back up to thelast 18 months. 2) Encounters from the Department of [facility] facilities going back up to 280 months. Location Location Details Encounter Type Encounter Number Reason For Visit Attending Provider ADM Date DC Date Status Disposition Source [facility] OUTPATIENT [id number] 04/24 Released with Work/Duty Limitations [facility] OUTPAT[facility] [id number] 04/25 Released w/o Limitations [facility] OUTPATIENT [id number] 04/25 Released with Work/Duty Limitations [facility] OUTPATIENT [id number] 05/02 Released w/o Limitations [facility] Social History Combined list of available smoking, tobacco, and other social history from Department of Defense and [facility] facilities. Social History Type Response Date Comment Sourc e This section is an empty social history section. DoD
--- OUTSIDE RECORDS SUMMARY | 2024-07-27 12:35 | XMS_ITS | Clinical Summary ---
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 file Not on file Not on file Obstetrics History Last Filed Vital Signs Vital Sign Reading Time Taken Comments Blood Pressure 124/85 08/28/2014 8:52 AM LEATHER BELT LOOP CUTTER Pulse 83 08/28/2014 8:52 AM LEATHER BELT LOOP CUTTER Temperature 36.9 C (98.4 F) 08/28/2014 8:52 AM LEATHER BELT LOOP CUTTER Respiratory Rate - - Oxygen Saturation 97% 08/28/2014 8:52 AM LEATHER BELT LOOP CUTTER Inhaled Oxygen Concentration - - Weight 142.1 kg (313 lb 3.2 oz) 08/28/2014 8:52 AM LEATHER BELT LOOP CUTTER Height 188 cm (6' 2.02) 08/28/2014 8:52 AM LEATHER BELT LOOP CUTTER Body Mass Index 40.2 08/28/2014 8:52 AM LEATHER BELT LOOP CUTTER Plan of Treatment Health Maintenance Due Date [...] - 199 mg/dL 04/06/2013 10:31 AM T [facility] TRIGLYCERIDES 86 <150 mg/dL 04/06/2013 10:31 AM [facility] HDL CHOLESTEROL 46 >40 mg/dL 3 10:31 AM [facility] NON-HDL CHOLESTEROL 153(H) <145 mg/dl 04/06/2013 10:31 AM [facility] CHOL/HDL RATIO 4.33 <4.50 04/06/2013 10:31 AM [facility] LDL CHOLESTEROL 136(H) <=130 mg/dL 04/06/2013 10:31 AM [facility] PATIENT STATUS FASTING 04/06/2013 10:31 AM T [facility] Blood specimen (specimen) BLOOD SPECIMEN / Unknown Venipuncture / Unknown 04/06/2013 9:44 AM CDT 04/06/2013 9:44 AM CDT us Tiburcio Vasques MD CHEMISTRY Final Re sult [facility] [address] [place] [address] from Last 3 Months or Most Recently Relevant to Health Maintenance Care Teams Rf Technician Relationship Specialty Start Date End Date Pcp, No . PCP - General 08/24/13
--- NOTE | 2024-07-27 12:55 | PM.GSCN ---
History of Present Illness Consult details Date Seen: 07/27/24 Consult date: 07/27/24 Narrative: The patient is a 54-year-old male who presented to the emergency department today with persistent right upper quadrant pain for several days. He states that he has had several weeks of right upper quadrant pain. He thought that this was secondary to eating food that ?disagreed? with him. This was intermittent in nature but approximately 2 weeks ago it became more constant. Two days ago it became significantly worse and he came into the emergency department. Workup revealed a large gallstone but without signs of cholecystitis. He states that he had persistent symptoms, however because at that time the hospital was full, he elected to discharge home with outpatient management and follow-up. His pain has persisted and this morning he attempted to eat breakfast. He had 2 pieces of toast and egg whites. This made him significantly worse and so he came in to be seen. He has not had any urinary symptoms. He has been nauseated but has not vomited. He feels he has been more constipated and cannot remember his last bowel movement. Prior to this he did not have any other symptoms. He does not have any chest pain or shortness of breath other than he states that when the pain is severe it is difficult to breathe. He does not have any medical issues and has not had surgery before. 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 He does not smoke. Does not drink alcohol. What is your current living situation?: I presently have a place to live Problems where you live: declined to answer In the past 12 months, utilities in danger of being shut off: no In past 12 months, lack of transportation kept you from medical appts, meetings, work, or getting things needed for daily living: no In the past 12 mos, have been you worried that your food would run out before you had money to buy more?: never true In the past 12 mos, the food you bought just didn't last and you didn't have money to buy more?: never true Smoking Status: Never smoker Do you use any of these nicotine containing products: None How often do you have a drink containing alcohol: never AUDIT-C Alcohol total score: 0 Non-prescribed substance use: denies use How often does anyone, including family, friends and others, physically hurt you: never How often does anyone, including family, friends and others, insult or talk down to you: never How often does anyone, including family, friends and others, threaten you with harm: never How often does anyone, including family, friends and others, scream or curse at you: never Meds Home Medications and Allergies Allergies Allergy/AdvReac Type Severity Reaction Status Date / Time No Known Drug Allergies Allergy Verified 07/27/24 11:55 Exam Narrative: Exam Narrative: General appearance: Alert, cooperative, and in no distress Eyes: PERRLA, eye lids clear, and sclera white HENT Head: Normocephalic Ears: External ears normal Pulmonary: Clear to auscultation bilaterally Cardiovascular Heart: Regular rate and rhythm Extremities: warm and well perfused Gastrointestinal Abdominal: No scars. Abdomen is tender in the right upper quadrant with a positive Russell sign. Musculoskeletal: Extremities: Upper: Both upper extremities have normal joint range of motion and intact strength. Lower: Both lower extremities have normal joint range of motion and intact strength. Skin: Normal skin color, texture, and turgor. Neurologic: No focal deficits Psychiatric: Alert, oriented, cooperative, normal affect. Const: Vital Signs, click to edit/add: Vital Signs - 24 hr 07/27/24 11:50 Temperature 97.1 F L Pulse Rate [Left P ulse Oximeter] 84 Respiratory Rate 18 Blood Pressure [Ri ght Upper Arm] 175/81 H Pulse Oximetry 98 Oxygen Delivery Me thod Room Air Results Labs Labs: White blood cell count and LFTs and lipase from to day and 07/24 were within normal limits. Troponin on 07/24 was normal. CRP today is 1.1. Imaging Additional studies: CT abdomen/pelvis 07/24 IMPRESSION: Cholelithiasis with CT findings suspicious for acute cholecystitis, inclusive of prominent gallbladder distension and mild pericholecystic edema. Dictated by Duncan Francis MD @ 07/24/2024 3:21:40 AM US abdomen 07/24: IMPRESSION: 1. Cholelithiasis with gallbladder distention. No additional sonographic evidence of acute cholecystitis. 2. Top-normal size of the common bile duct, which is largely obscured by bowel gas. Dictated by Lelia Saul MD @ 07/24/2024 8:36:58 AM ultrasound abdomen pelvis done 07/27/2024:\ Ultrasound of the abdomen 07/27/2024: IMPRESSION: There is cholelithiasis, distention of the gallbladder, and positive sonographic Russell`s sign. These findings could indicate acute cholecystitis in the appropriate clinical setting, although there is no pericholecystic fluid or gallbladder wall thickening. If further imaging evaluation would be of clinical utility, consider a HIDA scan. Dictated by Tyrel Walters MD @ 07/27/2024 12:58:13 PM Progress Note:A&P Assessment and plan (1) Cholelithiasis: Status: Acute (2) Cholecystitis: Status: Acute Plan The patient is a 54-year-old male with cholelithiasis and likely acute cholecystitis. I explained that the treatment for this is laparoscopic cholecystectomy. We discussed the procedure as well as risks and benefits of surgery which include bleeding, infection, bile leak, conversion to open or injury to other structures, specifically the common bile duct. We also discussed recovery. There is no evidence at this time of biliary obstruction therefore I do not think cholangiogram is necessary. Since he did eat essentially a full meal 6 hours ago, we will wait 2 hours before proceeding with surgery. He may be able to discharge home later today. He is agreeable with this plan and signed informed consent.
[2024-07-27 13:11] LABS: Basophils Absolute Auto 0.05 K/uL (0.00-0.30); Basophils Percent Auto 0.6 % (0.0-3.0); Eosinophils Absolute Auto 0.26 K/uL (0.00-0.50); Eosinophils Percent Auto 3.3 % (0.0-7.0); Hemoglobin* 14.3 gm/dL (13.5-17.5); Immature Granulocytes Abs Auto 0.01 K/uL (0.00-0.30); Immature Granulocytes Pct Auto 0.1 %; Lymphocytes Absolute Auto 2.09 K/uL (0.90-2.90); Lymphocytes Percent Auto 26.4 % (20-44); Mean Corpuscular HGB Conc 33 gm/dL (32-36); Mean Corpuscular Hemoglobin 29 pg (26-34); Mean Corpuscular Volume 86 fL (80-100); Neutrophils Absolute Auto 4.64 K/uL (1.7-7.0); Neutrophils Percent Auto 58.6 % (42.0-72.0); Platelet Count* 162 K/uL (140-440); RDW Coefficient of Variation % 12.7 % (11.5-15.5); White Blood Count* 7.92 K/uL (4.50-11.00)
[2024-07-27 13:29] LABS: Albumin* 4.1 g/dL (3.3-5.0); Slide Review Reflex No
[2024-07-27 13:32] LABS: Bilirubin Direct* 0.3 mg/dL (0.0-0.5); Bilirubin Total* 0.5 mg/dL (0.1-1.5)
[2024-07-27 13:33] LABS: Alanine Aminotransferase* 36 U/L (4-50); Alkaline Phosphatase* 52 U/L (40-150); Aspartate Amino Transferase* 23 U/L (12-35); Lipase* 62 U/L (23-300); Total Protein* 7.1 g/dL (6.0-8.3)
[2024-07-27 13:36] LABS: C Reactive Protein* 1.1 mg/dL (0.5-1.0)
[2024-07-27] MEDS: LACTATED RINGERS 500 ML 500 ML 125 ML IV ×2 (16:27→18:05)
--- OUTSIDE RECORDS SUMMARY | 2024-07-27 16:33 | XMS_ITS | Clinical Summary ---
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 Not on file Not on file Obstetrics History Last Filed Vital Signs Vital Sign Reading Time Taken Comments Blood Pressure 124/85 08/28/2014 8:52 AM CELL TESTER Pulse 83 08/28/2014 8:52 AM CELL TESTER Temperature 36.9 C (98.4 F) 08/28/2014 8:52 AM CELL TESTER Respiratory Rate - - Oxygen Saturation 97% 08/28/2014 8:52 AM CELL TESTER Inhaled Oxygen Concentration - - Weight 142.1 kg (313 lb 3.2 oz) 08/28/2014 8:52 AM CELL TESTER Height 188 cm (6' 2.02) 08/28/2014 8:52 AM CELL TESTER Body Mass Index 40.2 08/28/2014 8:52 AM CELL TESTER Plan of Treatment Health Maintenance Due Date [...] - 199 mg/dL 04/06/2013 10:31 AM T [facility] TRIGLYCERIDES 86 <150 mg/dL 04/06/2013 10:31 AM [facility] HDL CHOLESTEROL 46 >40 mg/dL 3 10:31 AM [facility] NON-HDL CHOLESTEROL 153(H) <145 mg/dl 04/06/2013 10:31 AM [facility] CHOL/HDL RATIO 4.33 <4.50 04/06/2013 10:31 AM [facility] LDL CHOLESTEROL 136(H) <=130 mg/dL 04/06/2013 10:31 AM [facility] PATIENT STATUS FASTING 04/06/2013 10:31 AM T [facility] Blood specimen (specimen) BLOOD SPECIMEN / Unknown Venipuncture / Unknown 04/06/2013 9:44 AM CDT 04/06/2013 9:44 AM CDT us Tiburcio Vasques MD CHEMISTRY Final Re sult [facility] [address] [place] [address] from Last 3 Months or Most Recently Relevant to Health Maintenance Care Teams Division Officer Weapons Department Relationship Specialty Start Date End Date Pcp, No . PCP - General 08/24/13
--- OUTSIDE RECORDS SUMMARY | 2024-07-27 16:33 | XMS_ITS | Continuity of Care Document ---
Author Name [facility] Organization [facility] Care Team Providers Care Manager Culinary Name Role Phone [facility] Unavailable Unavailable Problems Combined list of problems from [facility] and [facility] facilities. It does not include entries that were removed or entered in error. Problem Status Onset Date Problem Type Date of Resolution Comments Source visit for: issue medical certificate Inactive Condition [facility] dislocation of finger closed interphalangeal joint Inactive Condition [facility] closed fracture fingers ip joint with dislocation Inactive Condition [facility] dislocation fingers closed right ring finger PIP Inactive Condition [facility] Immunizations Combined list of available immunizations from the Department of [facility] and [facility] facilities. Immunization Series Date Given Administered By Site Reaction Lot Number CVX Code Drug Engineering Drafter Status Comments Source COVID-19 (MODERNA), MRNA, LNP-S, PF, 100 MCG/0.5 ML DOSE 2 2020 207 complet ed MOD; [id number]; 1 [facility] COVID-19 (MODERNA), MRNA, LNP-S, PF, 100 MCG/0.5 ML DOSE 1 2020 207 complet ed MOD; [id number]; 1 [facility] Encounters Combined list of: 1) Encounters from Department of [facility] facilities going back up to thelast 18 months. 2) Encounters from the Department of [facility] facilities going back up to 280 months. Location Location Details Encounter Type Encounter Number Reason For Visit Attending Provider ADM Date DC Date Status Disposition Source [facility] OUTPATIENT [id number] 04/24 Released with Work/Duty Limitations [facility] OUT[facility] [id number] 04/25 Released w/o Limitations [facility] OUTPAT[facility] [id number] 04/25 Released with Work/Duty Limitations [facility] OUTPAT[facility] [id number] 05/02 Released w/o Limitations [facility] Social History Combined list of available smoking, tobacco, and other social history from [facility] and [facility] facilities. Social History Type Response Date Comment Sourc e This section is an empty social history section. [facility]
[2024-07-27] MEDS: CEFAZOLIN 2 GM in 0.9 % SODIUM CHLORIDE Mini-bag 100 ML IVPB (16:40)
--- NOTE | 2024-07-27 17:45 | SUR.OPER ---
family updated by phone call
[2024-07-27] MEDS: BUPIVACAINE 0.25% 30 ML INJECTION (18:34)
--- NOTE | 2024-07-27 18:51 | PM.GSPRC ---
Operative Note Date of procedure: 07/27/24 Pre-op diagnosis: Acute cholecystitis Post-op diagnosis: Same Type of Procedure: Laparoscopic cholecystectomy Indications: The patient is a 54-year-old male who presented to the emergency department with several weeks of abdominal pain which had acutely worsened. He had previously been seen in the emergency department and was found to have a large gallstone, however, he had no evidence acute cholecystitis at the time and so he was discharged home for outpatient management. Two days later, the pain was persistent and more severe and so he came back in for evaluation. This time he appeared to have findings consistent with cholecystitis. Cholecystectomy was then recommended. Procedure Description: After discussing the risks and benefits of the procedure, the patient signed informed consent.? The operative site was marked and the patient was brought to the operating room and placed on the operating table in supine position.? Care was taken to pad the patient's pressure points.?? The patient was then intubated by anesthesia.?? The operative site was then prepped and draped in the usual sterile fashion.? A time-out was then performed. Entrance to the abdomen was gained via a 5 mm Visiport in the left upper quadrant. The abdomen was insufflated and briefly surveyed for signs of injury. There was none. A 10 mm umbilical port was placed as well as 2 working ports along the right costal margin, all under direct vision. The patient was then placed in reverse Trendelenburg position with the right side up. The gallbladder was noted to have omental adhesions. The gallbladder was edematous and taut. The omental adhesions were bluntly taken down and the gallbladder was examined. The gallbladder was noted to be extremely long, doubling back on itself approaching the infundibulum which was not initially in view given the large size of the gallbladder. Using a needle, I aspirated bile from the gallbladder. This did not appear purulent. The gallbladder was then able to be grasped and retracted cephalad. I was able to dissect the omentum down off of the gallbladder in order to eventually identify what appeared to be the infundibulum. There was a large stone impacted in it. I was able to push this backwards into the gallbladder to facilitate dissection of the infundibulum. With a combination of hook cautery and blunt dissection, I carefully dissected out the cystic duct and the cystic artery. Because of the gallbladder being doubled back on itself, the cystic artery was tethering the gallbladder down in prohibiting further dissection. This was carefully dissected out and clipped on the gallbladder once it was verify that it was not entering any other structures. I was then able to dissect posterior to the gallbladder and create a window, taking this down to the cystic duct. Cystic duct was dissected out circumferentially. There were no other structures entering the gallbladder. I then clipped the duct with 2 clips distal 1 clip proximal and divided this with scissors. The gallbladder was then taken off of the liver bed using cautery. The gallbladder was removed from the abdomen using an Endo-Catch bag. The gallbladder and the stones within were quite large, necessitating a slightly larger fascial opening to facilitate The gallbladder bed was surveyed for hemostasis which appeared adequate. A small amount of bile which had spilled was suctioned from the abdomen. The ports were removed and the abdomen desufflated. The umbilical port fascia was closed with interrupted 0 Vicryl suture. The skin was closed with absorbable subcuticular suture. Sterile dressings were applied. Instrument sponge and needle counts were correct at the end of the case. The patient was then woken and transferred to the PACU in stable condition. ? The patient tolerated the procedure well. Findings: Distended, and inflamed gallbladder, above normal in size and length Anesthesia: GETA Surgeon: Bere Monk MD Estimated blood loss (mL): 10 Specimen: Gallbladder Condition: stable Disposition: PACU
--- NOTE | 2024-07-27 19:01 | W.ANESCHARGE ---
Anesthesia Charges Start Date/Time Anesthesia Start Date: 07/27/24 Anesthesia Start Time: 16:27 Stop Date/Time Anesthesia Stop Date: 07/27/24 Anesthesia Stop Time: 18:58
[2024-07-27] MEDS: ONDANSETRON 2 MG/ML inj 4 MG IVP (20:00)
[2024-07-27] MEDS: LACTATED RINGERS 1000 ML 1,000 ML 75 ML IV (20:20)
[2024-07-27] MEDS: ACETAMINOPHEN 325 MG TABLET 650 MG PO (20:38)
[2024-07-27] MEDS: KETOROLAC 15 MG/ML inj IVP (20:39)
--- NOTE | 2024-07-27 21:58 | PC.NURSE ---
Patient voiding, eating, no nausea, no chest pain and vitally stable. Called Dr. Monk to see if okay to discharge patient. Cleared for discharge. Verbal order given.
== END 2024-07-27 22:49 | disposition home or self-care (01) ==
LOC: ED 15:01 → SS 16:30 → MEDSURG 19:38
PROVIDERS: Emergency Provider Emergency Medicine; PCP Family Medicine; Visit Provider Surgery
PROC: 0FT44ZZ Resection of Gallbladder, Percutaneous Endoscopic Approach (ICD-10-PCS; CPT 47562; principal; 2024-07-27 16:30)
DX: K80.12 Calculus of gallbladder with acute and chronic cholecystitis without obstruction (principal); R10.11 Right upper quadrant pain; R00.1 Bradycardia, unspecified
CPT/HCPCS: 47562; 00790; 36415; 76705; 80076; 83690; 85025; 86140; 88304; 93005; 99284; 99285; A9270; J0330; J0665; J0690; J1171; J1885; J2250; J2405; J2704; J3010; J3490; J7120